=== PATIENT | male | born 1985 | race African-American/Black ===

== ENCOUNTER 2018-12-04 11:28 | Inpatient (IN) | payer OTHER ==
[2018-12-04 12:57] VITALS: BMI 21.7
--- NOTE | 2018-12-04 14:10 | HP ---
CIWA Score Nausea/Vomitin-No Nausea/No Vomiting Muscle Tremors: 4-Moderate,w/Arms Extend Anxiety: 3 Agitation: 3 Paroxysmal Sweats: 2 Orientation: 0-Oriented Tacttile Disturbances: 0-None Auditory Disturbances: 0-None Visual Disturbances: 0-None Headache: 1-Very Mild CIWA-Ar Total Score: 13 - Admission Criteria OASAS Guidelines: Admission for Medically Managed Detox: Requires at least one of the followin. CIWA greater than 12 2. Seizures within the past 24 hours 3. Delirium tremens within the past 24 hours 4. Hallucinations within the past 24 hours 5. Acute intervention needed for co occurring medical disorder 6. Acute intervention needed for co occurring psychiatric disorder 7. Severe withdrawal that cannot be handled at a lower level of care (continued vomiting, continued diarrhea, abnormal vital signs) requiring intravenous medication and/or fluids 8. Admission ROS [facility] - HPI Chief Complaint: I am here to detox from the alcohol. Allergies/Adverse Reactions: Allergies Allergy/AdvReac Type Severity Reaction Status Date / Time No Known Allergies Allergy Verified 12/04/18 12:47 History of Present Illness: pt is a 33yrold male with a history of alcohol dependence seeking detox for treatment. Exam Limitations: No Limitations - Ebola screening Have you traveled outside of the country in the last 21 days: No (N) Have you had contact with anyone from an Ebola affected area: No Have you been sick,other than usual withdrawal symptoms: No Do you have a fever: No - Review of Systems Constitutional: Night Sweats, Changes in sleep EENT: reports: No Symptoms Reported Respiratory: reports: No Symptoms reported Cardiac: reports: No Symptoms Reported GI: reports: Poor Appetite, Poor Fluid Intake : reports: No Symptoms Reported Musculoskeletal: reports: No Symptoms Reported Integumentary: reports: No Symptoms Reported Neuro: reports: Tingling, Tremors Endocrine: reports: Excessive Sweating, Flushing, Intolerance to Cold, Intolerance to Heat Hematology: reports: No Symptoms Reported Psychiatric: reports: Judgement Intact, Mood/Affect Appropiate, Orientated x3, Agitated, Anxious Other Systems: Reviewed and Negative Patient History - Patient Medical History Hx Anemia: No Hx Asthma: No Hx Chronic Obstructive Pulmonary Disease (COPD): No Hx Cancer: No Hx Cardiac Disorders: No Hx Congestive Heart Failure: No Hx Hypertension: No Hx Hypercholesterolemia: No Hx Pacemaker: No HX Cerebrovascular Accident: No Hx Seizures: No Hx Dementia: No Hx Diabetes: No Hx Gastrointestinal Disorders: No Hx Liver Disease: No Hx Genitourinary Disorders: No Hx Sexually Transmitted Disorders: No Hx Renal Disease (ESRD): No Hx Thyroid Disease: No Hx Human Immunodeficiency Virus (HIV): Yes (since 2003; no treatment CD4>400) Hx Hepatitis C: Yes (no treatment received) Hx Depression: Yes Hx Suicide Attempt: No Hx Bipolar Disorder: No Hx Schizophrenia: No - Patient Surgical History Past Surgical History: No - PPD History Previous Implant?: No Documented Results: Negative w/o proof PPD to be Administered?: Yes - Reproductive History Patient is a Female of Child Bearing Age (11 -55 yrs old): No - Smoking Cessation Smoking history: Current every day smoker Have you smoked in the past 12 months: Yes Aproximately how many cigarettes per day: 4 Hx Chewing Tobacco Use: No Initiated information on smoking cessation: Yes 'Breaking Loose' booklet given: 12/04/18 - Substance & Tx. History Hx Alcohol Use: Yes Hx Substance Use: Yes Substance Use Type: Alcohol Hx Substance Use Treatment: No - Substances abused Alcohol Substance route: Oral Frequency: Daily Amount used: 1 bottle of smirnoff vodka Age of first use: 17 Date of last use: 12/04/18 Marijuana/Hashish Substance route: Smoking Frequency: Daily Amount used: 2 blunts Age of first use: 17 Date of last use: 12/03/18 Crystal meth Substance route: Smoking Frequency: 3-6 times per week Amount used: $60 Age of first use: 31 Date of last use: 12/03/18 Family Disease History - Family Disease History Family Disease History: Heart Disease: Grandparent Admission Physical Exam S - Vital Signs Vital Signs: Vital Signs - 24 hr 12/04/18 12/04/18 12:49 13:22 Temperature 97.0 F L 97.0 F L Pulse Rate 69 69 Respiratory 20 20 Rate Blood Pressure 120/80 120/80 - Physical General Appearance: Yes: Appropriately Dressed, Moderate Distress, Tremorous, Irritable, Sweating, Anxious HEENTM: Yes: Hearing grossly Normal, Normal Voice, Nasal Congestion, Rhinorrhea Respiratory: Yes: Lungs Clear, Normal Breath Sounds, No Respiratory Distress Neck: Yes: No masses,lesions,Nodules Breast: Yes: Within Normal Limits Cardiology: Yes: Regular Rhythm, Regular Rate, S1, S2 Abdominal: Yes: Normal Bowel Sounds Genitourinary: Yes: Within Normal Limits Back: Yes: Normal Inspection Musculoskeletal: Yes: full range of Motion, Gait Steady Extremities: Yes: Normal Capillary Refill, Normal Inspection Neurological: Yes: Fully Oriented, Alert, Normal Response Integumentary: Yes: Normal Color, Diaphoresis Lymphatic: Yes: Within Normal Limits - Diagnostic (1) Alcohol dependence with uncomplicated withdrawal Current Visit: Yes Status: Chronic (2) HIV disease Current Visit: Yes Status: Chronic Comment: not on any medication. pt has not taken medication in a year (3) Nicotine dependence Current Visit: Yes Status: Chronic Qualifiers: Nicotine product type: cigarettes Substance use status: uncomplicated Qualified Code(s): F17.210 - Nicotine dependence, cigarettes, uncomplicated Cleared for Admission [facility] - Detox or Rehab [facility] Level of Care: Medically Managed Detox Regimen/Protocol: Librium Claeared for Rehab Admission: No Breathalyzer - Breathalyzer Breathalyzer: 0 Urine Drug Screen - Test Device Lot number: [id number] Expiration date: 08/15/20 - Control Is test valid?: Yes - Results Drug screen NEGATIVE: No Urine drug screen results: THC-Marijuana, MET-Methamphetamine, AMP-Amphetamines , MDMA-Ecstasy Inpatient Rehab Admission - Rehab Decision to Admit Inpatient rehab admission?: No
[2018-12-04] MEDS ORDERED: ACETAMINOPHEN 325 MG TABLET (FP) PO PRN ×2 (14:26)
[2018-12-04] MEDS ORDERED: DICYCLOMINE HCL 10 MG CAPSULE PO PRN (14:26)
[2018-12-04] MEDS ORDERED: MAGNESIUM CITRATE 300 ML BOTTLE PO PRN (14:26)
[2018-12-04] MEDS ORDERED: MENTHOL/PHENOL 1 EACH UD MM PRN (14:26)
[2018-12-04] MEDS ORDERED: MELATONIN 5 MG TABLETS PO PRN (14:26)
[2018-12-04] MEDS ORDERED: BACLOFEN 10 MG TABLET (FP) PO PRN (14:26)
[2018-12-04] MEDS ORDERED: IBUPROFEN 400 MG TABLET (FP) PO PRN (14:26)
[2018-12-04] MEDS ORDERED: MAGNESIUM HYDROX 2400MG/30ML ORAL SUSPENSION 30 ML CUP PO PRN (14:26)
[2018-12-04] MEDS ORDERED: MAG HYDROX/AL HYDROX/SIMETH 30 ML UNIT-DOSE CUP PO PRN (14:26)
[2018-12-04] MEDS ORDERED: chlordiazePOXIDE HCL 25 MG CAPSULE PO PRN (14:26)
[2018-12-04] MEDS ORDERED: NICOTINE POLACRILEX 4 MG GUM BUC PRN (14:26)
[2018-12-04] MEDS ORDERED: ONDANSETRON *ODT* 4 MG TABLET SL PRN (14:26)
[2018-12-04] MEDS ORDERED: hydrOXYzine PAMOATE 25 MG CAPSULE (FP) PO PRN (14:26)
[2018-12-04] MEDS ORDERED: chlordiazePOXIDE HCL 25 MG CAPSULE PO ONE (15:05)
--- NOTE | 2018-12-04 15:21 | EKG ---
Test Reason : Blood Pressure : / mmHG Vent. Rate : 058 BPM Atrial Rate : 058 BPM P-R Int : 152 ms QRS Dur : 096 ms QT Int : 448 ms P-R-T Axes : 038 077 061 degrees QTc Int : 439 ms SINUS BRADYCARDIA MODERATE VOLTAGE CRITERIA FOR LVH, MAY BE NORMAL VARIANT ST ELEVATION, CONSIDER EARLY REPOLARIZATION, PERICARDITIS, OR INJURY ABNORMAL ECG NO PREVIOUS ECGS AVAILABLE Confirmed by TIA WALKER, YAMILETH ([id number]) on 12/04/2018 3:20:54 PM Referred By: Confirmed By:YAMILETH WEBER MD
[2018-12-04 17:20] LABS: HEMATOCRIT 41.5 % (35.4-49); HEMOGLOBIN 13.4 GM/dL (11.7-16.9); MCH 30.1 pg (25.7-33.7); MCHC 32.2 g/dl (32.0-35.9); MEAN CELL VOLUME 93.7 fl (80-96); MEAN PLT VOLUME 9.7 fl (7.5-11.1); PLATELET COUNT 227 K/MM3 (134-434); RBC 4.43 M/mm3 (4.00-5.60); RDW 13.8 % (11.9-15.9); WHITE BLOOD COUNT 4.9 K/mm3 (4.0-10.0)
[2018-12-04 17:25] LABS: ALBUMIN 3.8 g/dl (3.4-5.0); BILIRUBIN,TOTAL 0.6 mg/dL (0.2-1); CALCIUM 8.4 mg/dL (8.5-10.1); CREATININE 0.9 mg/dL (0.55-1.3); POTASSIUM 3.7 mmol/L (3.5-5.1); TOT PROT 7.7 g/dl (6.4-8.2)
[2018-12-04] MEDS: THIAMINE HCL 100 MG TABLET (FP) PO SCH (22:05)
[2018-12-04] MEDS: chlordiazePOXIDE HCL 25 MG CAPSULE PO SCH (22:06)
[2018-12-05] MEDS: chlordiazePOXIDE HCL 25 MG CAPSULE PO SCH ×4 (05:31→23:10)
--- NOTE | 2018-12-05 10:05 | PN ---
[facility] CIWA - CIWA Score Nausea/Vomitin-Mild Nausea/No Vomiting Muscle Tremors: 3 Anxiety: 1-Mildly Anxious Agitation: 2 Paroxysmal Sweats: 1-Minimal Palms Moist Orientation: 1-Uncertain about Date Tacttile Disturbances: 0-None Auditory Disturbances: 0-None Visual Disturbances: 0-None Headache: 1-Very Mild CIWA-Ar Total Score: 10 [facility] Progress Note (SOAP) Subjective: doing well with librium detox protocol resting on bed encourage to attend community self help support meeting Objective: 12/05/18 10:07 Vital Signs Temperature 97.0 F L 12/05/18 09:33 Pulse Rate 79 12/05/18 09:33 Respiratory Rate 18 12/05/18 09:33 Blood Pressure 108/70 12/05/18 09:33 O2 Sat by Pulse Oximetry (%) Laboratory Last Values WBC 4.9 K/mm3 (4.0-10.0) 12/04/18 14:10 RBC 4.43 M/mm3 (4.00-5.60) 12/04/18 14:10 Hgb 13.4 GM/dL (11.7-16.9) 12/04/18 14:10 Hct 41.5 % (35.4-49) 12/04/18 14:10 MCV 93.7 fl (80-96) 12/04/18 14:10 MCH 30.1 pg (25.7-33.7) 12/04/18 14:10 MCHC 32.2 g/dl (32.0-35.9) 12/04/18 14:10 RDW 13.8 % (11.9-15.9) 12/04/18 14:10 Plt Count 227 K/MM3 (134-434) 12/04/18 14:10 MPV 9.7 fl (7.5-11.1) 12/04/18 14:10 Sodium 139 mmol/L (136-145) 12/04/18 14:10 Potassium 3.7 mmol/L (3.5-5.1) 12/04/18 14:10 Chloride 105 mmol/L (98-107) 12/04/18 14:10 Carbon Dioxide 29 mmol/L (21-32) 12/04/18 14:10 Anion Gap 5 MMOL/L (8-16) L 12/04/18 14:10 BUN 10 mg/dL (7-18) 12/04/18 14:10 Creatinine 0.9 mg/dL (0.55-1.3) 12/04/18 14:10 Est GFR (CKD-EPI)AfAm 130.52 12/04/18 14:10 Est GFR (CKD-EPI)NonAf 112.62 12/04/18 14:10 Random Glucose 75 mg/dL (74-106) 12/04/18 14:10 Calcium 8.4 mg/dL (8.5-10.1) L 12/04/18 14:10 Total Bilirubin 0.6 mg/dL (0.2-1) 12/04/18 14:10 AST 38 U/L (15-37) H 12/04/18 14:10 ALT 71 U/L (13-61) H 12/04/18 14:10 Alkaline Phosphatase 56 U/L (45-117) 12/04/18 14:10 Total Protein 7.7 g/dl (6.4-8.2) 12/04/18 14:10 Albumin 3.8 g/dl (3.4-5.0) 12/04/18 14:10 lab noted Assessment: 12/05/18 10:08 alcohol withdrawal sx Plan: continue detox
[2018-12-05] MEDS: PRENATAL VITAMINS W/ FOLIC ACID TABLET (FP) PO SCH (10:47)
[2018-12-05] MEDS: NICOTINE 21 MG/24 HOURS TOPICAL PATCH TD SCH (10:48)
--- NOTE | 2018-12-05 12:31 | CONSULT ---
[facility] Psychiatric Consult - Data Date of interview: 12/05/18 Admission source: [facility] Identifying data: First admission to [facility] for this 33 y/o AA male self- referred for detoxification (alcohol + cannabis + methamphetamine). Seen at [address] [place] [address]. Patient is single, no dependents, domiciled, unemployed and supported on SSI benefits. Substance Abuse History: Confirmed by the patient in this session. Details in current [facility] report as follows : Smoking history: Current every day smoker. Have you smoked in the past 12 months: Yes. Aproximately how many cigarettes per day: 4. Hx Chewing Tobacco Use: No. Initiated information on smoking cessation: Yes. 'Breaking Loose' booklet given: 12/04/18. - Substance & Tx. History. Hx Alcohol Use: Yes. Hx Substance Use: Yes. Substance Use Type: Alcohol. Hx Substance Use Treatment: No. - Substances abused. Alcohol. Substance route: Oral. Frequency: Daily. Amount used: 1 bottle of smirnoff vodka. Age of first use: 17. Date of last use: 12/04/18. Marijuana/ Hashish. Substance route: Smoking. Frequency: Daily. Amount used: 2 blunts. Age of first use: 17. Date of last use: 12/03/18. Crystal meth. Substance route: Smoking. Frequency: 3-6 times per week. Amount used: $60. Age of first use: 31. Date of last use: 12/03/18 Medical History: History of seizure disorder, hepatitis C and HIV infection since 2003. Psychiatric History: Patient denies history of psychiatric hospitalizations, OPD care or suicide attempts. Physical/Sexual Abuse/Trauma History: Patient declines to discuss this domain. Additional Comment: Urine drug screen results: THC-Marijuana, MET- Methamphetamine, AMP-Amphetamines, MDMA-Ecstasy. Noted. Mental Status Exam - Mental Status Exam Alert and Oriented to: Time, Place, Person Cognitive Function: Grossly Intact Patient Appearance: Unkempt, Disheveled Mood: Withdrawn Affect: Appropriate, Mood Congruent, Normal Range Patient Behavior: Fatigued, Appropriate, Cooperative Speech Pattern: Clear Voice Loudness: Normal Thought Process: Goal Oriented Thought Disorder: Not Present Hallucinations: Denies Suicidal Ideation: Denies Homicidal Ideation: Denies Insight/Judgement: Poor Sleep: Fair Appetite: Good Muscle strength/Tone: Normal Gait/Station: Other (not observed ; in bed all morning) Psychiatric Findings - Problem List ([place] 1, 2,3) (1) Alcohol dependence with uncomplicated withdrawal Current Visit: Yes Status: Acute (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 Sleep hygiene. Detoxification. Insomnia is addressed with melatonin at bedtime. Patient agrees with plan. Verbal informed consent given to MD. Lockwood.
[2018-12-05] MEDS: THIAMINE HCL 100 MG TABLET (FP) PO SCH (23:09)
[2018-12-06] MEDS: chlordiazePOXIDE HCL 25 MG CAPSULE PO SCH ×3 (05:46→18:34)
[2018-12-06] MEDS: PRENATAL VITAMINS W/ FOLIC ACID TABLET (FP) PO SCH (10:29)
[2018-12-06] MEDS: NICOTINE 21 MG/24 HOURS TOPICAL PATCH TD SCH (10:31)
--- NOTE | 2018-12-06 17:53 | PN ---
S CIWA - CIWA Score Nausea/Vomitin-No Nausea/No Vomiting Muscle Tremors: 3 Anxiety: 3 Agitation: 1-Slight > Activity Paroxysmal Sweats: 3 Orientation: 0-Oriented Tacttile Disturbances: 0-None Auditory Disturbances: 0-None Visual Disturbances: 0-None Headache: 0-None Present CIWA-Ar Total Score: 10 [facility] Progress Note (SOAP) Subjective: Anxious, Tremors, Sweating. Objective: PATIENT A & O X 2 (UNCERTAIN ABOUT CURRENT DAY / DATE). PATIENT OBSERVED AMBULATING ON UNIT UNASSISTED. IN NO ACUTE DISTRESS. 12/06/18 17:54 Vital Signs Temperature 98.4 F 12/06/18 17:10 Pulse Rate 90 12/06/18 17:10 Respiratory Rate 17 12/06/18 17:10 Blood Pressure 114/64 12/06/18 17:10 O2 Sat by Pulse Oximetry (%) Laboratory Tests 12/04/18 12/04/18 14:10 14:10 WBC 4.9 RBC 4.43 Hgb 13.4 Hct 41.5 MCV 93.7 MCH 30.1 MCHC 32.2 RDW 13.8 Plt Count 227 MPV 9.7 Sodium 139 Potassium 3.7 Chloride 105 Carbon Dioxide 29 Anion Gap 5 L BUN 10 Creatinine 0.9 Est GFR (CKD-EPI)AfAm 130.52 Est GFR (CKD-EPI)NonAf 112.62 Random Glucose 75 Calcium 8.4 L Total Bilirubin 0.6 AST 38 H ALT 71 H Alkaline Phosphatase 56 Total Protein 7.7 Albumin 3.8 LABS NOTED. RPR RESULT PENDING. 12/06/18 17:58 Assessment: 12/06/18 17:55 WITHDRAWAL SYMPTOMS. Plan: CONTINUE DETOX.
[2018-12-06] MEDS: chlordiazePOXIDE HCL 10 MG CAPSULE PO SCH (22:29)
[2018-12-06] MEDS: THIAMINE HCL 100 MG TABLET (FP) PO SCH (22:29)
[2018-12-07] MEDS: chlordiazePOXIDE HCL 10 MG CAPSULE PO SCH ×2 (05:47→10:28)
[2018-12-07 09:41] VITALS: BP 114/65; PULSE 97; TEMP 96.7
[2018-12-07] MEDS: NICOTINE 21 MG/24 HOURS TOPICAL PATCH TD SCH (10:28)
[2018-12-07] MEDS: PRENATAL VITAMINS W/ FOLIC ACID TABLET (FP) PO SCH (10:28)
--- NOTE | 2018-12-07 11:40 | PN ---
S Progress Note (SOAP) Subjective: Interrupted sleep, muscle weakness and joint pain Objective: 12/07/18 11:39 Last Vital Signs Temp Pulse Resp BP Pulse Ox 96.7 F L 97 H 18 114/65 12/07/18 09:40 12/07/18 09:40 12/07/18 09:40 12/07/18 09:40 Laboratory Last Values WBC 4.9 K/mm3 (4.0-10.0) 12/04/18 14:10 RBC 4.43 M/mm3 (4.00-5.60) 12/04/18 14:10 Hgb 13.4 GM/dL (11.7-16.9) 12/04/18 14:10 Hct 41.5 % (35.4-49) 12/04/18 14:10 MCV 93.7 fl (80-96) 12/04/18 14:10 MCH 30.1 pg (25.7-33.7) 12/04/18 14:10 MCHC 32.2 g/dl (32.0-35.9) 12/04/18 14:10 RDW 13.8 % (11.9-15.9) 12/04/18 14:10 Plt Count 227 K/MM3 (134-434) 12/04/18 14:10 MPV 9.7 fl (7.5-11.1) 12/04/18 14:10 Sodium 139 mmol/L (136-145) 12/04/18 14:10 Potassium 3.7 mmol/L (3.5-5.1) 12/04/18 14:10 Chloride 105 mmol/L (98-107) 12/04/18 14:10 Carbon Dioxide 29 mmol/L (21-32) 12/04/18 14:10 Anion Gap 5 MMOL/L (8-16) L 12/04/18 14:10 BUN 10 mg/dL (7-18) 12/04/18 14:10 Creatinine 0.9 mg/dL (0.55-1.3) 12/04/18 14:10 Est GFR (CKD-EPI)AfAm 130.52 12/04/18 14:10 Est GFR (CKD-EPI)NonAf 112.62 12/04/18 14:10 Random Glucose 75 mg/dL (74-106) 12/04/18 14:10 Calcium 8.4 mg/dL (8.5-10.1) L 12/04/18 14:10 Total Bilirubin 0.6 mg/dL (0.2-1) 12/04/18 14:10 AST 38 U/L (15-37) H 12/04/18 14:10 ALT 71 U/L (13-61) H 12/04/18 14:10 Alkaline Phosphatase 56 U/L (45-117) 12/04/18 14:10 Total Protein 7.7 g/dl (6.4-8.2) 12/04/18 14:10 Albumin 3.8 g/dl (3.4-5.0) 12/04/18 14:10 Labs noted Assessment: 12/07/18 11:39 Withdrawal sx Plan: Continue detox
--- NOTE | 2018-12-07 12:38 | DS ---
[facility] Detox Discharge Summary Admission Date: 12/04/18 Discharge Date: 12/07/18 - History Present History: Alcohol Dependence, Cocaine Dependence Pertinent Past History: Hepatitis C with no treatment, HIV + - Physical Exam Results Vital Signs: Vital Signs Temperature 96.7 F L 12/07/18 09:40 Pulse Rate 97 H 12/07/18 09:40 Respiratory Rate 18 12/07/18 09:40 Blood Pressure 114/65 12/07/18 09:40 O2 Sat by Pulse Oximetry (%) Pertinent Admission Physical Exam Findings: Withdrawal Laboratory Last Values WBC 4.9 K/mm3 (4.0-10.0) 12/04/18 14:10 RBC 4.43 M/mm3 (4.00-5.60) 12/04/18 14:10 Hgb 13.4 GM/dL (11.7-16.9) 12/04/18 14:10 Hct 41.5 % (35.4-49) 12/04/18 14:10 MCV 93.7 fl (80-96) 12/04/18 14:10 MCH 30.1 pg (25.7-33.7) 12/04/18 14:10 MCHC 32.2 g/dl (32.0-35.9) 12/04/18 14:10 RDW 13.8 % (11.9-15.9) 12/04/18 14:10 Plt Count 227 K/MM3 (134-434) 12/04/18 14:10 MPV 9.7 fl (7.5-11.1) 12/04/18 14:10 Sodium 139 mmol/L (136-145) 12/04/18 14:10 Potassium 3.7 mmol/L (3.5-5.1) 12/04/18 14:10 Chloride 105 mmol/L (98-107) 12/04/18 14:10 Carbon Dioxide 29 mmol/L (21-32) 12/04/18 14:10 Anion Gap 5 MMOL/L (8-16) L 12/04/18 14:10 BUN 10 mg/dL (7-18) 12/04/18 14:10 Creatinine 0.9 mg/dL (0.55-1.3) 12/04/18 14:10 Est GFR (CKD-EPI)AfAm 130.52 12/04/18 14:10 Est GFR (CKD-EPI)NonAf 112.62 12/04/18 14:10 Random Glucose 75 mg/dL (74-106) 12/04/18 14:10 Calcium 8.4 mg/dL (8.5-10.1) L 12/04/18 14:10 Total Bilirubin 0.6 mg/dL (0.2-1) 12/04/18 14:10 AST 38 U/L (15-37) H 12/04/18 14:10 ALT 71 U/L (13-61) H 12/04/18 14:10 Alkaline Phosphatase 56 U/L (45-117) 12/04/18 14:10 Total Protein 7.7 g/dl (6.4-8.2) 12/04/18 14:10 Albumin 3.8 g/dl (3.4-5.0) 12/04/18 14:10 Labs noted sx - Treatment Hospital Course: Detox Protocol Followed, Detoxed Safely, Responded well, Discharged Condition Good (Patient requested early discharge, he is stable) - Medication Discharge Medications: Ambulatory Orders NK [No Known Home Medication] 12/04/18 - Diagnosis (1) Alcohol dependence with uncomplicated withdrawal Current Visit: Yes Status: Acute (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
[2018-12-07] MEDS ORDERED: chlordiazePOXIDE HCL 10 MG CAPSULE PO SCH (23:00)
[2018-12-10 08:54] LABS: RPR REACTIVE 1:4 (NONREACTIVE)
[2018-12-10 11:52] LABS: TREPONEMA ANTIBODY REACTIVE (NONREACTIVE)
--- NOTE | 2018-12-10 14:45 | PN ---
[facility] Progress Note Note: received lab called today around 9 am that RPR 1:4 [facility] pending reviewed lab around 2 pm [facility] "reactive" radio news writer call infectious disease department spoke with Christina Sosa who will inform [facility]
== END 2018-12-07 12:59 | disposition home or self-care (01) | DRG 775 ==
LOC: YASAS 11:28 → Y3N 14:50
PROVIDERS: ADMIT Surgery; ATTEND Surgery
PROC: HZ2ZZZZ Detoxification Services for Substance Abuse Treatment (ICD-10-PCS; principal; 2018-12-04)
DX: F10.230 Alcohol dependence with withdrawal, uncomplicated (principal); F15.20 Other stimulant dependence, uncomplicated; F12.20 Cannabis dependence, uncomplicated; F17.210 Nicotine dependence, cigarettes, uncomplicated; G47.00 Insomnia, unspecified; Z21 Asymptomatic human immunodeficiency virus [HIV] infection status; Z86.69 Personal history of other diseases of the nervous system and sense organs
CPT/HCPCS: 36415; 80053; 85027; 86593; 86780; 93005; 93010